=== PATIENT | female | born 1945 | race Caucasian/White ===

== ENCOUNTER 2021-09-27 16:31 | Emergency (ER) | payer MEDICARE, SELFPAY ==
--- NOTE | 2021-09-27 16:51 | ED.EYEPROB ---
HPI - Eye Problem General Chief complaint: Eye Problems Stated complaint: eye injury Time Seen by Provider: 09/27/21 16:59 Source: patient, family and RN notes reviewed Mode of arrival: ambulatory Limitations: no limitations History of Present Illness HPI Narrative: 76-year-old female presents to the [facility] with complaints of right eye bruising with intermittent change of vision. Patient reports that she was walking into work when she tripped on uneven pavement landing on her right side. Happened 2 days ago on Monday. Patient denies any nausea or vomiting. Denies any neck or back pain. Denies any headaches. Currently denies any change in vision or blurry vision. States she has had intermittent blurry vision. Bruising noted to the lateral aspect at the eyebrow, small hematoma. No orbital tenderness. PERRLA, full range of motion of both eyes. MD chief complaint: eye injury and vision change (Intermittent) Related Data Home Medications Medication Instructions Recorded Confirmed atorvastatin 20 mg PO DAILY 09/27/21 09/27/21 lisinopril 2.5 mg PO DAILY 09/27/21 09/27/21 meloxicam 15 mg PO DAILY 09/27/21 09/27/21 oxybutynin chloride 5 mg PO TID 09/27/21 09/27/21 pentoxifylline 400 mg PO TID 09/27/21 09/27/21 Allergies Allergy/AdvReac Type Severity Reaction Status Date / Time No Known Allergies Allergy Verified 09/27/21 17:03 Review of Systems Review of Systems: All systems reviewed & are unremarkable except as noted in HPI and below Constitutional: Constitutional: Reports no additional constitutional complaints, Denies chills and Denies fever(s) Eyes: Eyes: Reports as per HPI, Denies blind spots, Reports blurry vision (Intermittent), Denies exophthalmos, Denies change in vision, Denies eye discharge, Denies dry eyes, Denies floaters, Denies irritation, Denies itchy eyes, Denies loss of peripheral vision, Denies loss of vision, Denies eye pain, Denies seeing flashes, Denies photophobia, Denies spots in vision and Denies tunnel vision ENT: Reports system reviewed and no additional complaints, except as documented Cardiovascular: Cardiovascular: Reports no additional cardiovascular complaints and Denies chest pain Respiratory: Respiratory: Reports no additional respiratory complaints and Denies cough Gastrointestinal: Gastrointestinal: Reports no additional gastrointestinal complaints and Denies abdominal pain Musculoskeletal: Musculoskeletal: Reports no additional musculoskeletal complaints Integumentary/Breasts: Skin/Breast: Reports system reviewed and no additional complaints, except as docu Neurologic: Reports system reviewed and no additional complaints, except as documented Psychiatric: Psychiatric: Reports no additional psychiatric complaints Allergic/Immunologic: Allergic/Immunologic: Reports no additional allergic/immunologic complaints PMFSH Comments At the time of my signature, I reviewed and agree with the nursing past medical, surgical, social, and family history. There is no relevant family history pertinent to the patient complaint. Exam Const: General: no acute distress Nutritional Appearance: well nourished Orientation/consciousness: patient oriented x3 Limitations: no limitations HENMT: Head: normal to inspection Ears: external ears normal Eyes: General: appearance normal, both eyes and all related structures Visual Hair: normal visual hair by confrontation Alignment and Position: alignment normal Periorbital: periorbital findings abnormal right (Right lateral face swelling, half centimeter hematoma noted at the eyebrow.) periorbital ecchymosis; no tenderness Eyelids: eyelid abnormality right upper eyelid (Bruising) Conjunctivae: conjunctivae normal Cornea: corneas normal Pupils: Equal, round and reactive pupils present EOM: EOMs intact bilaterally Direct Ophthalmoscopy: normal light reflex and no photophobia Neck: Neck: normal visual inspection, no lymphadenopathy and no menin
[2021-09-27 16:52] VITALS: BP 121/53; PULSE 75; RESP 20; TEMP 36.6; O2SAT 97
== END 2021-09-27 17:35 | disposition home or self-care (01) ==
PROVIDERS: Emergency Provider Nurse Practitioner; PCP Internal Medicine
DX: S05.11XA Contusion of eyeball and orbital tissues, right eye, initial encounter (principal); W01.0XXA Fall on same level from slipping, tripping and stumbling without subsequent striking against object, initial encounter; E78.00 Pure hypercholesterolemia, unspecified; I10 Essential (primary) hypertension
CPT/HCPCS: 99212; G0463